=== PATIENT | female | born 1950 | race Caucasian/White ===

== ENCOUNTER 2023-05-13 22:32 | Inpatient (IN) | payer MEDICARE, MEDICAID ==
[~2023-05-13] VITALS: Ht 152.4 cm; Wt 67.4 kg
[2023-05-13] MEDS ORDERED: ACETAMINOPHEN 325MG TABLET PO STA (22:44)
[2023-05-13] MEDS ORDERED: PIPERACILLIN/TAZ 3.375G PREMIX 50 ML IV ONE (22:45)
[2023-05-13] MEDS ORDERED: VANCOMYCIN 1G PREMIX 200 ML IV ONE (22:45)
[2023-05-13] MEDS ORDERED: SODIUM CHLORIDE 0.9% 1,000 ML IV ONE (22:45)
[2023-05-13 23:03] LABS: HEMATOCRIT. 37.9 % (36.0-48.0); HEMOGLOBIN. 12.5 g/dL (12.0-16.0); LYMPHOCYTES % 9.2 % (20.0-50.0); MEAN CORPUSCULAR HEMOGLOBIN 31.2 pg (28.0-32.0); MEAN CORPUSCULAR VOLUME 94.6 fL (81.0-99.0); MEAN PLATELET VOLUME 8.4 fl (7.4-10.4); MONOCYTES % 5.7 % (2.0-8.0); NEUTROPHILS % 85.1 % (40.0-76.0); PLATELET 185 x1000/uL (130-400); RED BLOOD CELL COUNT 4.01 mill/uL (4.2-5.4); RED CELL DISTRIBUTION WIDTH 16.2 % (11.6-14.6)
[2023-05-13 23:13] LABS: CHLORIDE 105 mEq/L (98-107); INDEX HEMOLYSI 1 (1-3); INDEX ICTERIC 1 (1-4); INDEX LIPEMIC 1 (1-3); POTASSIUM 3.3 mEq/L (3.5-5.1); SODIUM 139 mEq/L (136-145)
[2023-05-13 23:14] LABS: INR 1.2; PROTHROMBIN TIME 12.4 sec (9.6-11.0)
[2023-05-13 23:22] LABS: ALANINE AMINOTRANSFERASE 22 IU/L (13-61); ALBUMIN 3.3 g/dL (3.4-5.0); ASPARTATE AMINOTRANSFERASE 24 IU/L (15-37); BILIRUBIN TOTAL 0.6 mg/dL (0.1-1.0); CALCIUM 8.4 mg/dL (8.5-10.1); CARBON DIOXIDE 27 mEq/L (21-32); CREATININE 0.8 mg/dL (0.6-1.3); GLUCOSE 188 mg/dL (70-105); NT PRO B-TYPE NATRIURETIC PEP 4161 pg/mL (5-125); PROTEIN TOTAL 6.8 g/dL (6.0-8.3); UREA NITROGEN BLOOD 20 mg/dL (7-21)
[2023-05-13 23:46] LABS: LACTIC ACID 2.8 mmol/L (0.4-2.0); TROPONIN I HIGH SENSITIVITY 1331 ng/L (<54)
[2023-05-14] MEDS ORDERED: ASPIRIN 325MG EC TABLET PO NR (01:00)
[2023-05-14 01:38] LABS: TROPONIN I HIGH SENSITIVITY 1640 ng/L (<54)
[2023-05-14] MEDS ORDERED: VANCOMYCIN 1G PREMIX 200 ML IV ONE (02:45)
[2023-05-14] MEDS ORDERED: VANCOMYCIN 1G PREMIX 200 ML IV NR (02:45)
[2023-05-14] MEDS ORDERED: ACETAMINOPHEN 325MG TABLET PO NR (02:45)
[2023-05-14] MEDS ORDERED: PIPERACILLIN/TAZ 3.375G PREMIX 50 ML IV NR (02:45)
[2023-05-14 08:14] VITALS: BP_SYST 123; BP_SYST 145; BP_DIAS 66; BP_DIAS 72; PULSE 74; PULSE 91; RESP 12; RESP 18; TEMP 97.4; TEMP 97.8
[2023-05-14 10:03] VITALS: BP 123/72; PULSE 74; RESP 18; TEMP 97.8
[2023-05-14] MEDS ORDERED: ONDANSETRON HCL 4MG/2ML INJ IV PRN (10:30)
[2023-05-14] MEDS ORDERED: DEXTROSE 50% WATER 50ML SYRINGE IV PRN (10:30)
[2023-05-14] MEDS ORDERED: CLONIDINE 0.1MG TABLET PO PRN (10:30)
[2023-05-14] MEDS ORDERED: MAGNESIUM/ALUMINUM HYDROXIDE/SIMETHICONE 30ML UDC PO PRN (10:30)
[2023-05-14 12:00] VITALS: BP 119/81; PULSE 75; RESP 17; TEMP 98.1
[2023-05-14] MEDS: INSULIN LISPRO 100 UNITS/ML SUBCUT SCH ×3 (12:00→21:30)
[2023-05-14] MEDS: BLOOD SUGAR DIAGNOSTIC STRIP TEST SCH ×3 (12:00→21:30)
[2023-05-14] MEDS: ASPIRIN 81MG EC TABLET PO SCH (13:27)
[2023-05-14] MEDS: ENOXAPARIN 40MG/0.4ML SYR SUBCUT SCH (13:28)
[2023-05-14] MEDS: SODIUM CHLORIDE 0.9% 1,000 ML IV SCH (13:28)
[2023-05-14] MEDS: PIPERACILLIN/TAZOBACTAM 3.375 G in DEXTROSE 5% WATER 50 ML IV SCH ×2 (13:28→22:16)
[2023-05-14] MEDS ORDERED: NALOXONE HCL 0.4MG/ML VIAL IV PRN (14:15)
[2023-05-14] MEDS ORDERED: ATOR-2 PO (15:05)
[2023-05-14] MEDS ORDERED: GABA-532 PO (15:07)
[2023-05-14] MEDS ORDERED: FOLI-43 PO (15:08)
[2023-05-14] MEDS ORDERED: ISOS20TA8 MT (15:20)
[2023-05-14] MEDS ORDERED: DULO30CA52 PO (15:20)
[2023-05-14] MEDS ORDERED: ASPI-1497 MT (15:20)
[2023-05-14] MEDS ORDERED: AMLO2.5T45 MT (15:20)
[2023-05-14 16:00] VITALS: BP 123/82; PULSE 82; RESP 16; TEMP 99.5
[2023-05-14 17:39] LABS: CLARITY URINE CLEAR (CLEAR); COLOR URINE YELLOW (YELLOW); GLUCOSE URINE 1+ (NEGATIVE); KETONES URINE NEGATIVE (NEGATIVE); LEUKOCYTE ESTERASE URINE NEGATIVE (NEGATIVE); NITRITE URINE NEGATIVE (NEGATIVE); OCCULT BLOOD URINE TRACE (NEGATIVE); PH URINE 5.5 (4.5-8.0); PROTEIN URINE 1+ (NEGATIVE); SPECIFIC GRAVITY URINE 1.013 (1.005-1.030)
[2023-05-14 17:54] LABS: SQUAMOUS EPITHELIAL CELL URINE RARE /lpf (RARE/1+)
[2023-05-14 17:55] LABS: BACTERIA URINE TRACE; RBC URINE 0-2 /hpf (0-2); WBC URINE 0-2 /hpf (0-2)
[2023-05-14 17:56] LABS: YEAST URINE NONE SEEN
[2023-05-14 17:58] LABS: *AMPHETAMINES SCREEN URINE NEGATIVE (NEGATIVE); *BARBITURATES SCREEN URINE NEGATIVE (NEGATIVE); *BENZODIAZEPINES SCREEN URINE NEGATIVE (NEGATIVE); *COCAINE SCREEN URINE NEGATIVE (NEGATIVE); CANNABINOID URINE SCREEN NEGATIVE (NEGATIVE); ECSTASY MDMA SCREEN URINE NEGATIVE (NEGATIVE); OPIATES URINE SCREEN NEGATIVE (NEGATIVE); PHENCYCLIDINE URINE SCREEN NEGATIVE (NEGATIVE)
[2023-05-14] MEDS: ACETAMINOPHEN 325MG TABLET PO PRN (17:59)
[2023-05-14 18:32] LABS: METHADONE URINE SCREEN INVALID (NEGATIVE)
[2023-05-14 20:00] VITALS: BP 113/69; PULSE 92; RESP 24; TEMP 98.7
[2023-05-14] MEDS: VANCOMYCIN 500MG PREMIX 100 ML IV SCH (21:26)
[2023-05-14] MEDS: ATORVASTATIN CALCIUM 40MG TABLET PO SCH (21:26)
[2023-05-15] VITALS: BP 129/67; PULSE 82; RESP 22; TEMP 98.2
[2023-05-15] MEDS: SODIUM CHLORIDE 0.9% 1,000 ML IV SCH ×2 (01:42→10:55)
[2023-05-15 04:00] VITALS: BP 129/59; PULSE 78; RESP 16; TEMP 98.4
[2023-05-15 05:31] LABS: BASOPHILS % 0.6 % (0.0-2.0); EOSINOPHILS % 0.1 % (0.0-5.0); HEMOGLOBIN. 11.4 g/dL (12.0-16.0); LYMPHOCYTES % 10.8 % (20.0-50.0); MEAN CORPUSCULAR HEMOGLOBIN 30.7 pg (28.0-32.0); MEAN CORPUSCULAR HGB CONC 32.7 g/dL (31.0-37.0); MEAN CORPUSCULAR VOLUME 93.9 fL (81.0-99.0); MONOCYTES % 5.4 % (2.0-8.0); NEUTROPHILS % 83.1 % (40.0-76.0); PLATELET 169 x1000/uL (130-400); RED BLOOD CELL COUNT 3.73 mill/uL (4.2-5.4); RED CELL DISTRIBUTION WIDTH 16.1 % (11.6-14.6); WHITE BLOOD COUNT 13.1 x1000/uL (4.5-11.0)
[2023-05-15 05:34] LABS: CHLORIDE 108 mEq/L (98-107); INDEX HEMOLYSI 1 (1-3); INDEX ICTERIC 1 (1-4); INDEX LIPEMIC 1 (1-3); POTASSIUM 3.5 mEq/L (3.5-5.1); SODIUM 141 mEq/L (136-145)
[2023-05-15 05:47] LABS: ALANINE AMINOTRANSFERASE 30 IU/L (13-61); ALBUMIN 2.5 g/dL (3.4-5.0); ASPARTATE AMINOTRANSFERASE 54 IU/L (15-37); BILIRUBIN DIRECT 0.3 mg/dL (0.0-0.2); BILIRUBIN TOTAL 1.1 mg/dL (0.1-1.0); CALCIUM 8.2 mg/dL (8.5-10.1); CARBON DIOXIDE 27 mEq/L (21-32); CHOLESTEROL 106 mg/dL (<200); CREATININE 0.6 mg/dL (0.6-1.3); GLUCOSE 125 mg/dL (70-105); HDL CHOLESTEROL 55 mg/dL (40-59); LDL CHOLESTEROL 34 mg/dL (5-100); PHOSPHORUS 1.7 mg/dL (2.5-4.9); PROTEIN TOTAL 6.1 g/dL (6.0-8.3); T4 FREE 1.12 ng/dL (0.76-1.46); TRIGLYCERIDE 124 mg/dL (0-150); UREA NITROGEN BLOOD 11 mg/dL (7-21)
[2023-05-15] MEDS: PIPERACILLIN/TAZOBACTAM 3.375 G in DEXTROSE 5% WATER 50 ML IV SCH ×3 (06:06→22:00)
[2023-05-15 06:15] LABS: TROPONIN I HIGH SENSITIVITY 2228 ng/L (<54)
[2023-05-15] MEDS: BLOOD SUGAR DIAGNOSTIC STRIP TEST SCH ×4 (07:00→21:41)
[2023-05-15] MEDS: INSULIN LISPRO 100 UNITS/ML SUBCUT SCH ×4 (07:20→21:48)
[2023-05-15 08:00] VITALS: BP 114/68; PULSE 102; RESP 19; TEMP 100; TEMP 98
[2023-05-15] MEDS ORDERED: MAGNESIUM 1 G PREMIX 100 ML IV NR ×2 (08:00→10:15)
[2023-05-15] MEDS ORDERED: SODIUM PHOS,M-BASIC-D-BASIC 20 MM in DEXT 5% WATER 243.3333 ML IV NR (08:30)
[2023-05-15] MEDS: GABAPENTIN 300MG CAPSULE PO SCH ×3 (09:40→19:05)
[2023-05-15] MEDS: DULOXETINE HCL 30MG DR CAPSULE PO SCH ×2 (09:40→19:06)
[2023-05-15] MEDS: VANCOMYCIN 500MG PREMIX 100 ML IV SCH ×2 (09:40→21:49)
[2023-05-15] MEDS: AMLODIPINE 2.5MG TABLET PO SCH (09:41)
[2023-05-15] MEDS: ASPIRIN 81MG EC TABLET PO SCH (09:41)
[2023-05-15] MEDS: ISOSORBIDE DINITRATE 20MG TABLET PO SCH ×3 (09:42→19:06)
[2023-05-15] MEDS: FOLIC ACID 1MG TABLET PO SCH (09:42)
[2023-05-15] MEDS: ENOXAPARIN 40MG/0.4ML SYR SUBCUT SCH (09:43)
[2023-05-15] MEDS: PANTOPRAZOLE SODIUM 40 MG/VIAL IV SCH (09:48)
[2023-05-15] MEDS ORDERED: POTASSIUM CHLORIDE 20MEQ TABLET SR PO NR (10:41)
[2023-05-15 12:00] VITALS: BP 129/59; PULSE 80; RESP 22; TEMP 98.4
[2023-05-15] MEDS: LACTATED RINGERS 1,000 ML IV SCH ×2 (15:40→21:50)
[2023-05-15] MEDS ORDERED: FAMO20TA8 PO (15:47)
[2023-05-15] MEDS ORDERED: COLL30OI TP (15:57)
[2023-05-15] MEDS ORDERED: METF-873 PO (15:57)
[2023-05-15] MEDS ORDERED: LOSA50TA41 PO (15:57)
[2023-05-15] MEDS ORDERED: LOPHC2 GT (15:57)
[2023-05-15] MEDS ORDERED: CHOL400D7 PO (15:57)
[2023-05-15] MEDS ORDERED: GLIP10TA10 PO (15:57)
[2023-05-15] MEDS ORDERED: MULT-1203 PO (15:57)
[2023-05-15] MEDS ORDERED: HYDR12.54 PO (15:57)
[2023-05-15] MEDS ORDERED: POLY250017 PO (15:57)
[2023-05-15 16:00] VITALS: BP 114/68; PULSE 88; RESP 22; TEMP 99
[2023-05-15 20:00] VITALS: BP 109/51; PULSE 93; RESP 22; TEMP 98.6
[2023-05-15] MEDS: ATORVASTATIN CALCIUM 40MG TABLET PO SCH (21:47)
[2023-05-15] MEDS: ACETAMINOPHEN 325MG TABLET PO PRN (21:48)
[2023-05-16 04:00] VITALS: BP 123/55; PULSE 68; RESP 18; TEMP 98.5
[2023-05-16 05:53] LABS: BASOPHILS % 0.3 % (0.0-2.0); EOSINOPHILS % 1.1 % (0.0-5.0); LYMPHOCYTES % 22.7 % (20.0-50.0); MEAN CORPUSCULAR HEMOGLOBIN 32.1 pg (28.0-32.0); MEAN CORPUSCULAR HGB CONC 34.6 g/dL (31.0-37.0); MEAN CORPUSCULAR VOLUME 92.8 fL (81.0-99.0); MONOCYTES % 10.9 % (2.0-8.0); PLATELET 155 x1000/uL (130-400); RED BLOOD CELL COUNT 3.13 mill/uL (4.2-5.4); RED CELL DISTRIBUTION WIDTH 15.2 % (11.6-14.6); WHITE BLOOD COUNT 7.8 x1000/uL (4.5-11.0)
[2023-05-16 05:59] LABS: CHLORIDE 112 mEq/L (98-107); INDEX HEMOLYSI 1 (1-3); INDEX ICTERIC 1 (1-4); INDEX LIPEMIC 1 (1-3); POTASSIUM 4.1 mEq/L (3.5-5.1); SODIUM 143 mEq/L (136-145)
[2023-05-16] MEDS: PIPERACILLIN/TAZOBACTAM 3.375 G in DEXTROSE 5% WATER 50 ML IV SCH ×3 (06:00→22:18)
[2023-05-16 06:12] LABS: CARBON DIOXIDE 29 mEq/L (21-32); CREATININE 0.6 mg/dL (0.6-1.3); GLUCOSE 132 mg/dL (70-105); UREA NITROGEN BLOOD 7 mg/dL (7-21)
[2023-05-16 06:17] LABS: TROPONIN I HIGH SENSITIVITY 538 ng/L (<54)
[2023-05-16] MEDS: BLOOD SUGAR DIAGNOSTIC STRIP TEST SCH ×4 (07:02→21:34)
[2023-05-16] MEDS: INSULIN LISPRO 100 UNITS/ML SUBCUT SCH ×4 (07:30→21:00)
[2023-05-16 08:00] VITALS: BP 123/55; PULSE 78; RESP 22; TEMP 98.5
[2023-05-16] MEDS: PANTOPRAZOLE SODIUM 40 MG/VIAL IV SCH (08:44)
[2023-05-16] MEDS: ASPIRIN 81MG EC TABLET PO SCH (08:44)
[2023-05-16] MEDS: AMLODIPINE 2.5MG TABLET PO SCH (08:44)
[2023-05-16] MEDS: GABAPENTIN 300MG CAPSULE PO SCH ×3 (08:44→18:15)
[2023-05-16] MEDS: DULOXETINE HCL 30MG DR CAPSULE PO SCH ×2 (08:44→18:14)
[2023-05-16] MEDS: VANCOMYCIN 500MG PREMIX 100 ML IV SCH (08:45)
[2023-05-16] MEDS: FOLIC ACID 1MG TABLET PO SCH (08:45)
[2023-05-16] MEDS: ISOSORBIDE DINITRATE 20MG TABLET PO SCH ×3 (08:45→18:15)
[2023-05-16] MEDS ORDERED: IOHEXOL-350 100 ML BOTTLE ONE (10:53)
[2023-05-16 12:00] VITALS: BP 133/64; PULSE 78; PULSE 99; RESP 21; RESP 22; TEMP 98.2; TEMP 99
[2023-05-16] MEDS: ENOXAPARIN 40MG/0.4ML SYR SUBCUT SCH (12:34)
[2023-05-16] MEDS: NITROGLYCERIN OINT 1GM/INCH UDPKT TD SCH ×2 (15:54→22:22)
[2023-05-16 16:00] VITALS: BP 133/64; PULSE 85; RESP 17; TEMP 99
[2023-05-16 20:00] VITALS: BP 128/70; PULSE 83; RESP 16; TEMP 98.4
[2023-05-16] MEDS: ATORVASTATIN CALCIUM 40MG TABLET PO SCH (22:18)
[2023-05-16] MEDS: VANCOMYCIN 750MG PREMIX 150 ML IV SCH (22:18)
[2023-05-17] VITALS: BP 116/60; PULSE 77; RESP 20; TEMP 98.2
[2023-05-17] MEDS: HYDROCODONE/ACETAMINOPHEN 5/325MG TABLET PO PRN ×4 (00:34→22:28)
[2023-05-17 04:00] VITALS: BP 127/55; PULSE 69; RESP 16; TEMP 97.9
[2023-05-17] MEDS: PIPERACILLIN/TAZOBACTAM 3.375 G in DEXTROSE 5% WATER 50 ML IV SCH ×3 (06:02→22:26)
[2023-05-17] MEDS: NITROGLYCERIN OINT 1GM/INCH UDPKT TD SCH ×3 (06:03→22:27)
[2023-05-17 06:55] LABS: BASOPHILS % 0.5 % (0.0-2.0); EOSINOPHILS % 2.4 % (0.0-5.0); HEMATOCRIT. 28.2 % (36.0-48.0); HEMOGLOBIN. 9.6 g/dL (12.0-16.0); MEAN CORPUSCULAR HEMOGLOBIN 31.6 pg (28.0-32.0); MEAN CORPUSCULAR HGB CONC 34.2 g/dL (31.0-37.0); MEAN CORPUSCULAR VOLUME 92.4 fL (81.0-99.0); MEAN PLATELET VOLUME 9.2 fl (7.4-10.4); MONOCYTES % 11.6 % (2.0-8.0); NEUTROPHILS % 54.5 % (40.0-76.0); PLATELET 168 x1000/uL (130-400); RED BLOOD CELL COUNT 3.05 mill/uL (4.2-5.4); RED CELL DISTRIBUTION WIDTH 15.5 % (11.6-14.6); WHITE BLOOD COUNT 5.8 x1000/uL (4.5-11.0)
[2023-05-17] MEDS: BLOOD SUGAR DIAGNOSTIC STRIP TEST SCH ×4 (07:11→21:00)
[2023-05-17 07:15] LABS: INDEX HEMOLYSI 1 (1-3); INDEX ICTERIC 1 (1-4); INDEX LIPEMIC 1 (1-3)
[2023-05-17] MEDS: INSULIN LISPRO 100 UNITS/ML SUBCUT SCH ×4 (07:20→21:00)
[2023-05-17 07:36] LABS: CALCIUM 8.2 mg/dL (8.5-10.1); CHLORIDE 110 mEq/L (98-107); CREATINE KINASE 162 IU/L (26-192); CREATININE 0.6 mg/dL (0.6-1.3); GLUCOSE 126 mg/dL (70-105); POTASSIUM 3.1 mEq/L (3.5-5.1); SODIUM 144 mEq/L (136-145); UREA NITROGEN BLOOD 8 mg/dL (7-21)
[2023-05-17 08:00] VITALS: BP 116/60; PULSE 80; RESP 17; TEMP 99
[2023-05-17 08:06] LABS: TROPONIN I HIGH SENSITIVITY 280 ng/L (<54)
[2023-05-17] MEDS: ASPIRIN 81MG EC TABLET PO SCH (08:46)
[2023-05-17] MEDS: AMLODIPINE 2.5MG TABLET PO SCH (08:46)
[2023-05-17] MEDS: VANCOMYCIN 750MG PREMIX 150 ML IV SCH ×2 (08:47→22:26)
[2023-05-17] MEDS: DULOXETINE HCL 30MG DR CAPSULE PO SCH ×2 (08:47→16:39)
[2023-05-17] MEDS: ISOSORBIDE DINITRATE 20MG TABLET PO SCH ×3 (08:47→16:38)
[2023-05-17] MEDS: PANTOPRAZOLE SODIUM 40 MG/VIAL IV SCH (08:47)
[2023-05-17] MEDS: FOLIC ACID 1MG TABLET PO SCH (08:47)
[2023-05-17] MEDS: GABAPENTIN 300MG CAPSULE PO SCH ×3 (08:47→16:39)
[2023-05-17] MEDS ORDERED: POLYETHYLENE GLYCOL 3350 (17GM) 1 DOSE PACK PO SCH (10:00)
[2023-05-17] MEDS: POLYETHYLENE GLYCOL 3350 (17GM) 1 DOSE PACK PO SCH (10:59)
[2023-05-17] MEDS: ENOXAPARIN 40MG/0.4ML SYR SUBCUT SCH (11:00)
[2023-05-17] MEDS: DOCUSATE SODIUM 250MG CAPSULE PO SCH (11:00)
[2023-05-17 12:00] VITALS: BP 116/60; PULSE 87; RESP 15; TEMP 98.3
[2023-05-17] MEDS ORDERED: POTASSIUM CHLORIDE 20MEQ TABLET SR PO NR ×2 (12:30→15:00)
[2023-05-17 12:34] LABS: CARBON DIOXIDE 26 mEq/L (21-32)
[2023-05-17] MEDS ORDERED: LACTULOSE 20G/30ML UDC PO NR (15:15)
[2023-05-17 16:00] VITALS: BP 116/60; PULSE 83; RESP 17; TEMP 99
[2023-05-17 17:20] LABS: INDEX HEMOLYSI 1 (1-3); INDEX ICTERIC 1 (1-4); INDEX LIPEMIC 1 (1-3)
[2023-05-17 17:21] LABS: INDEX HEMOLYSI 1 (1-3)
[2023-05-17 17:24] LABS: IRON 61 ug/dL (50-175); TOTAL IRON BINDING CAPACITY 202 ug/dL (250-450)
[2023-05-17 17:49] LABS: VITAMIN B12 SERUM 484 pg/mL (211-911)
[2023-05-17 20:00] VITALS: BP 132/67; PULSE 81; RESP 11; TEMP 98
[2023-05-17] MEDS: ATORVASTATIN CALCIUM 40MG TABLET PO SCH (22:27)
[2023-05-18] VITALS: BP 123/60; PULSE 70; RESP 18; TEMP 98.2
[2023-05-18 04:00] VITALS: BP 128/56; PULSE 67; RESP 18; TEMP 98.5
[2023-05-18] MEDS: PIPERACILLIN/TAZOBACTAM 3.375 G in DEXTROSE 5% WATER 50 ML IV SCH ×3 (05:36→22:24)
[2023-05-18] MEDS: HYDROCODONE/ACETAMINOPHEN 5/325MG TABLET PO PRN (05:47)
[2023-05-18] MEDS: NITROGLYCERIN OINT 1GM/INCH UDPKT TD SCH ×3 (05:47→22:27)
[2023-05-18 06:24] LABS: BASOPHILS % 0.6 % (0.0-2.0); EOSINOPHILS % 4.2 % (0.0-5.0); HEMATOCRIT. 30.6 % (36.0-48.0); HEMOGLOBIN. 10.5 g/dL (12.0-16.0); LYMPHOCYTES % 36.1 % (20.0-50.0); MEAN CORPUSCULAR HEMOGLOBIN 32.2 pg (28.0-32.0); MEAN CORPUSCULAR HGB CONC 34.3 g/dL (31.0-37.0); MEAN CORPUSCULAR VOLUME 94.1 fL (81.0-99.0); MEAN PLATELET VOLUME 8.5 fl (7.4-10.4); MONOCYTES % 14.8 % (2.0-8.0); NEUTROPHILS % 44.3 % (40.0-76.0); PLATELET 200 x1000/uL (130-400); RED BLOOD CELL COUNT 3.25 mill/uL (4.2-5.4); WHITE BLOOD COUNT 5.2 x1000/uL (4.5-11.0)
[2023-05-18 06:42] LABS: CHLORIDE 110 mEq/L (98-107); INDEX HEMOLYSI 1 (1-3); INDEX ICTERIC 1 (1-4); INDEX LIPEMIC 1 (1-3); POTASSIUM 4.6 mEq/L (3.5-5.1); SODIUM 143 mEq/L (136-145)
[2023-05-18] MEDS: PANTOPRAZOLE 40MG DR TABLET PO SCH (06:50)
[2023-05-18 06:54] LABS: CALCIUM 8.6 mg/dL (8.5-10.1); CARBON DIOXIDE 34 mEq/L (21-32); CREATININE 0.6 mg/dL (0.6-1.3); GLUCOSE 119 mg/dL (70-105); UREA NITROGEN BLOOD 4 mg/dL (7-21)
[2023-05-18 07:14] LABS: TROPONIN I HIGH SENSITIVITY 144 ng/L (<54)
[2023-05-18] MEDS: BLOOD SUGAR DIAGNOSTIC STRIP TEST SCH ×4 (07:15→21:59)
[2023-05-18] MEDS: INSULIN LISPRO 100 UNITS/ML SUBCUT SCH ×4 (07:20→22:27)
[2023-05-18] MEDS: POLYETHYLENE GLYCOL 3350 (17GM) 1 DOSE PACK PO SCH (07:54)
[2023-05-18 08:00] VITALS: BP 134/66; PULSE 70; RESP 17
[2023-05-18] MEDS: GABAPENTIN 300MG CAPSULE PO SCH ×3 (08:32→16:36)
[2023-05-18] MEDS: DULOXETINE HCL 30MG DR CAPSULE PO SCH ×2 (08:33→16:36)
[2023-05-18] MEDS: ISOSORBIDE DINITRATE 20MG TABLET PO SCH ×3 (08:33→16:36)
[2023-05-18] MEDS: VANCOMYCIN 750MG PREMIX 150 ML IV SCH ×2 (08:34→22:24)
[2023-05-18] MEDS: AMLODIPINE 2.5MG TABLET PO SCH (08:34)
[2023-05-18] MEDS: DOCUSATE SODIUM 250MG CAPSULE PO SCH (09:00)
[2023-05-18] MEDS: FOLIC ACID 1MG TABLET PO SCH (09:00)
[2023-05-18] MEDS ORDERED: IODIXANOL 320MG/ML 100 ML BOTTLE IV ONE (12:07)
[2023-05-18] MEDS ORDERED: HEPARIN 1000 UNITS/ML 10ML ONE (12:07)
[2023-05-18] MEDS ORDERED: LIDOCAINE HCL 1% 20ML VIAL (Pyxis) INJ ONE (12:07)
[2023-05-18] MEDS ORDERED: FENTANYL CITRATE/PF 50MCG/ML 2ML VIAL ONE (12:18)
[2023-05-18] MEDS ORDERED: MIDAZOLAM HCL 2 MG/2 ML VIAL ONE (12:18)
[2023-05-18] MEDS ORDERED: ASPIRIN/SOD BICARB/CITRIC ACID 324MG TAB EFF ONE (12:30)
[2023-05-18] MEDS ORDERED: MORPHINE SULFATE 2 MG/ML CPJ (NOT FOR IM USE) IV PRN (13:30)
[2023-05-18] MEDS ORDERED: ONDANSETRON HCL 4MG/2ML INJ IV PRN (13:30)
[2023-05-18] MEDS ORDERED: ACETAMINOPHEN 325MG TABLET PO PRN (13:30)
[2023-05-18] MEDS ORDERED: SODIUM CHLORIDE 0.45% 1,000 ML IV ONE (13:30)
[2023-05-18] MEDS ORDERED: ATROPINE SULFATE 1MG/10ML SYR IV PRN (13:30)
[2023-05-18] MEDS ORDERED: CLOPIDOGREL 75MG TABLET PO ONE (13:30)
[2023-05-18] MEDS ORDERED: CLOPIDOGREL 75MG TABLET ONE (13:45)
[2023-05-18] MEDS ORDERED: NALOXONE HCL 0.4MG/ML VIAL IV PRN (14:00)
[2023-05-18 16:00] VITALS: BP 125/82; PULSE 67; RESP 15; TEMP 96.8
[2023-05-18 20:00] VITALS: BP 136/68; PULSE 87; RESP 20; TEMP 98.1
[2023-05-18] MEDS: ATORVASTATIN CALCIUM 40MG TABLET PO SCH (22:25)
[2023-05-19] VITALS: BP 144/55; PULSE 88; RESP 19; TEMP 98.3
[2023-05-19] MEDS: HYDROCODONE/ACETAMINOPHEN 5/325MG TABLET PO PRN (00:19)
[2023-05-19 04:00] VITALS: BP 126/51; PULSE 66; RESP 22; TEMP 98.1
[2023-05-19] MEDS: PIPERACILLIN/TAZOBACTAM 3.375 G in DEXTROSE 5% WATER 50 ML IV SCH ×2 (06:40→13:53)
[2023-05-19] MEDS: PANTOPRAZOLE 40MG DR TABLET PO SCH (06:40)
[2023-05-19] MEDS: BLOOD SUGAR DIAGNOSTIC STRIP TEST SCH ×2 (06:40→12:20)
[2023-05-19] MEDS: NITROGLYCERIN OINT 1GM/INCH UDPKT TD SCH ×2 (06:42→13:53)
[2023-05-19] MEDS: INSULIN LISPRO 100 UNITS/ML SUBCUT SCH ×2 (07:20→12:20)
[2023-05-19 07:39] LABS: BASOPHILS % 0.5 % (0.0-2.0); EOSINOPHILS % 2.4 % (0.0-5.0); HEMATOCRIT. 29.1 % (36.0-48.0); LYMPHOCYTES % 27.6 % (20.0-50.0); MEAN CORPUSCULAR HEMOGLOBIN 32.6 pg (28.0-32.0); MEAN CORPUSCULAR HGB CONC 34.5 g/dL (31.0-37.0); MEAN CORPUSCULAR VOLUME 94.7 fL (81.0-99.0); MEAN PLATELET VOLUME 8.6 fl (7.4-10.4); MONOCYTES % 13.3 % (2.0-8.0); NEUTROPHILS % 56.2 % (40.0-76.0); PLATELET 225 x1000/uL (130-400); RED BLOOD CELL COUNT 3.08 mill/uL (4.2-5.4); RED CELL DISTRIBUTION WIDTH 14.7 % (11.6-14.6); WHITE BLOOD COUNT 5.9 x1000/uL (4.5-11.0)
[2023-05-19 07:45] LABS: CALCIUM 9.4 mg/dL (8.5-10.1); CARBON DIOXIDE 31 mEq/L (21-32); CHLORIDE 108 mEq/L (98-107); INDEX HEMOLYSI 1 (1-3); INDEX ICTERIC 1 (1-4); INDEX LIPEMIC 1 (1-3); POTASSIUM 4.1 mEq/L (3.5-5.1); SODIUM 141 mEq/L (136-145); UREA NITROGEN BLOOD 7 mg/dL (7-21)
[2023-05-19 07:49] LABS: CREATININE 0.6 mg/dL (0.6-1.3); GLUCOSE 130 mg/dL (70-105)
[2023-05-19 08:00] VITALS: BP 133/65; PULSE 73; RESP 17; TEMP 98.4
[2023-05-19] MEDS: AMLODIPINE 2.5MG TABLET PO SCH (08:16)
[2023-05-19] MEDS: DULOXETINE HCL 30MG DR CAPSULE PO SCH (08:16)
[2023-05-19] MEDS: DOCUSATE SODIUM 250MG CAPSULE PO SCH (08:16)
[2023-05-19] MEDS: FOLIC ACID 1MG TABLET PO SCH (08:17)
[2023-05-19] MEDS: GABAPENTIN 300MG CAPSULE PO SCH ×2 (08:17→13:52)
[2023-05-19] MEDS: ISOSORBIDE DINITRATE 20MG TABLET PO SCH ×2 (08:17→13:53)
[2023-05-19] MEDS: POLYETHYLENE GLYCOL 3350 (17GM) 1 DOSE PACK PO SCH (08:18)
[2023-05-19] MEDS: VANCOMYCIN 750MG PREMIX 150 ML IV SCH (08:18)
[2023-05-19] MEDS ORDERED: CLOPIDOGREL 75MG TABLET PO SCH (09:00)
[2023-05-19] MEDS ORDERED: ASPIRIN 81MG TABLET PO SCH (09:00)
[2023-05-19] MEDS ORDERED: CLOP-31 PO (10:05)
[2023-05-19] MEDS ORDERED: LIDOCAINE HCL/PF 1% 10 MG/ML 5ML VIAL ONE (10:09)
[2023-05-19] MEDS ORDERED: ASPI-1497 MT (11:04)
[2023-05-19 12:00] VITALS: PULSE 68; RESP 18; TEMP 99
[2023-05-19 13:00] VITALS: BP 134/73; PULSE 68; TEMP 99; O2SAT 99
[2023-05-19 16:00] VITALS: PULSE 85; RESP 22; TEMP 98.3
[2023-05-20] MEDS ORDERED: FAMOTIDINE 20MG TABLET PO SCH (06:50)
== END 2023-05-19 18:57 | disposition home health service (06) | DRG 515 ==
LOC: ER 22:32 → 3WST 05-14 02:02 → EDBEDREQTM 05-14 02:07 → EDBEDREQ 05-14 02:07
PROVIDERS: ADMIT Internal Medicine; ATTEND Internal Medicine
PROC: 04FK3ZZ Fragmentation of Right Femoral Artery, Percutaneous Approach (ICD-10-PCS; principal; 2023-05-18)
PROC: 047K3Z1 Dilation of Right Femoral Artery using Drug-Coated Balloon, Percutaneous Approach (ICD-10-PCS; 2023-05-18)
PROC: 02HV33Z Insertion of Infusion Device into Superior Vena Cava, Percutaneous Approach (ICD-10-PCS; 2023-05-19)
PROC: B548ZZA Ultrasonography of Superior Vena Cava, Guidance (ICD-10-PCS; 2023-05-19)
DX: T87.43 Infection of amputation stump, right lower extremity (principal); A41.9 Sepsis, unspecified organism; G93.41 Metabolic encephalopathy; I21.A1 Myocardial infarction type 2; R65.20 Severe sepsis without septic shock; E87.20 Acidosis, unspecified; L97.919 Non-pressure chronic ulcer of unspecified part of right lower leg with unspecified severity; L03.115 Cellulitis of right lower limb; M86.8X6 Other osteomyelitis, lower leg; E11.51 Type 2 diabetes mellitus with diabetic peripheral angiopathy without gangrene; E87.6 Hypokalemia; I10 Essential (primary) hypertension; E11.69 Type 2 diabetes mellitus with other specified complication; E83.39 Other disorders of phosphorus metabolism; E83.42 Hypomagnesemia; M17.0 Bilateral primary osteoarthritis of knee; E78.00 Pure hypercholesterolemia, unspecified; I25.10 Atherosclerotic heart disease of native coronary artery without angina pectoris; D64.9 Anemia, unspecified; K59.00 Constipation, unspecified; M11.261 Other chondrocalcinosis, right knee; Z89.511 Acquired absence of right leg below knee; Z79.899 Other long term (current) drug therapy; Y83.5 Amputation of limb(s) as the cause of abnormal reaction of the patient, or of later complication, without mention of misadventure at the time of the procedure; Y92.89 Other specified places as the place of occurrence of the external cause; Z79.4 Long term (current) use of insulin
CPT/HCPCS: 36415; 36573; 37224; 71045; 73560; 73718; 75635; 75710; 76700; 80048; 80053; 80061; 80076; 80202; 80305; 81003; 82550; 82607; 82962; 83036; 83540; 83550; 83605; 83735; 83880; 84100; 84145; 84439; 84443; 84484; 85025; 85044; 85347; 87426; 87804; 93005; 93306; 93923; 93970; 97162; 99291; A6261; C1725; C1760; C1769; C1893; C1894; C2623; C9113; C9803; J1644; J1650; J1815; J2250; J2543; J3010; J3370; J3475; J3490; J7030; J7060; J7120; Q9967; C1761